=== PATIENT | female | born 1940 | race American Indian/Alaskan Native ===

== ENCOUNTER 2016-08-10 06:05 | Emergency (ER) | payer MEDICARE ==
[2016-08-10 06:05] VITALS: BMI 31.4
[2016-08-10] MEDS ORDERED: Sodium Chloride 0.9% 500 ML IV ONE ×2 (07:27→07:32)
[2016-08-10 07:46] LABS: BASO % 0.6 % (0.0-2.0); EOS # 0.2 K/uL (0.0-0.7); EOS % 2.1 % (0.0-4.0); HEMATOCRIT 37.4 % (34.0-47.0); LYMPH # 3.1 K/uL (1.0-4.3); LYMPH % 37.2 % (20.0-40.0); MEAN CORPUSCULAR HEMOGLOBIN 25.6 pg (27.0-31.0); MEAN PLATELET VOLUME 8.1 fL (7.2-11.7); MONO # 0.4 K/uL (0.0-0.8); MONO % 5.1 % (0.0-10.0); RED CELL DISTRIBUTION WIDTH 15.3 % (11.5-14.5); WHITE BLOOD COUNT 8.4 K/uL (4.8-10.8)
[2016-08-10 07:51] LABS: CHLORIDE 101 mmol/L (98-107); SODIUM 141 mmol/L (132-148)
[2016-08-10 07:52] LABS: POTASSIUM 4.2 mmol/L (3.6-5.2)
[2016-08-10 07:54] LABS: ALB/GLOB RATIO 1.2 (1.0-2.1); ALKALINE PHOSPHATASE 42 U/L (38-126); ALT/SGPT 18 U/L (9-52); AST/SGOT 22 U/L (14-36); BILIRUBIN,TOTAL 0.6 mg/dL (0.2-1.3); BLOOD UREA NITROGEN 17 mg/dL (7-17); CARBON DIOXIDE 25 mmol/L (22-30); GFR AFRICAN-AMERICAN > 60; GLUCOSE,RANDOM 142 mg/dL (65-105); TOTAL PROTEIN 7.2 g/dL (6.3-8.3)
[2016-08-10 07:55] LABS: CALCIUM 8.5 mg/dl (8.6-10.4)
--- NOTE | 2016-08-10 07:59 | C.PDOC ---
History Of Present Illness 76 y/o female presents to the ED complaining of vaginal bleeding starting last night. She reports that she is still bleeding this morning. Patient denies any prior history of vaginal bleeding after menopause. She reports history of bilateral breast cancer, s/p mastectomy 1 year prior. States that it was not metastatic to her knowledge. Patient denies any chest pain, shortness of breath , nausea, vomiting, diarrhea, or dysuria. Time Seen by Provider: 08/10/16 07:15 Chief Complaint (Nursing): Female Genitourinary History Per: Patient History/Exam Limitations: no limitations Onset/Duration Of Symptoms: Hrs, Gradual, Persistent Current Symptoms Are (Timing): Still Present Recent travel outside of the [place]: No Past Medical History Reviewed: Historical Data, Nursing Documentation, Vital Signs Vital Signs: Last Vital Signs Temp 98.5 F 08/10/16 06:12 Pulse 53 L 08/10/16 10:35 Resp 18 08/10/16 10:35 BP 136/63 08/10/16 10:35 Pulse Ox 96 08/10/16 10:35 - Medical History PMH: Arthritis (right shoulder), Osteoporosis Surgical History: No Surg Hx - [facility] Procedures RESECTION OF BILATERAL BREAST, OPEN APPROACH (07/30/15) Family History: States: No Known Family Hx - Social History Hx Tobacco Use: No Hx Alcohol Use: No Hx Substance Use: No - Immunization History Hx Tetanus Toxoid Vaccination: No Hx Influenza Vaccination: No Hx Pneumococcal Vaccination: No Review Of Systems Except As Marked, All Systems Reviewed And Found Negative. Cardiovascular: Negative for: Chest Pain Respiratory: Negative for: Shortness of Breath Gastrointestinal: Negative for: Nausea, Vomiting, Diarrhea Genitourinary: Positive for: Vaginal Bleeding. Negative for: Dysuria Physical Exam - Physical Exam Appears: Non-toxic, No Acute Distress, Other (comfortable) Skin: Normal Color, Warm, Dry Head: Atraumatic, Normacephalic Neck: Normal ROM, Supple Chest: Symmetrical Cardiovascular: Rhythm Regular Respiratory: Normal Breath Sounds, No Rales, No Rhonchi, No Wheezing Gastrointestinal/Abdominal: Soft, Tenderness (mild, suprapubic), No Guarding, No Rebound Back: Normal Inspection, No CVA Tenderness Extremity: Normal ROM, No Swelling Neurological/Psych: Oriented x3, Normal Speech, Normal Cognition ED Course And Treatment - Laboratory Results Result Diagrams: 08/10/16 07:30 08/10/16 07:30 O2 Sat by Pulse Oximetry: 98 (ra) Pulse Ox Interpretation: Normal - CT Scan/US TRANSVAGINAL US Other Rad Studies (CT/US): Read By Radiologist, Radiology Report Reviewed CT/US Interpretation: Accession No. : [id number]. Patient Name / ID : CARMITA ROBISON / [id number]. Exam Date : 08/10/2016 09:15:57 ( Approved ). Study Comment : Sex / Age : F / 76Y. Creator : Osmin Burt MD. Dictator : Osmin Burt MD. Pet Ambassador : Enzyme Chemist : Osmin Burt MD. Approver2 : Report Date : 08/10/2016 11:45:42. My Comment : . Pelvic ultrasound dated 08/10/2016. History: Pelvic pain and vaginal bleeding. Transabdominal/transvaginal sonographic evaluation is performed comparison made with scan of the abdomen pelvis dated 01/18/2013. Findings: The uterus is anteverted measuring 5.9 x 5.7 x 7.0 cm. Dense calcified posterior fibroid measuring approximate 1.7 cm greatest dimension. The endometrium is abnormally thickened measuring 3.16 cm. Rule out endometrial hyperplasia, endometrial polyps or endometrial carcinoma. Followup OB ultrasound and additional studies recommended. No free fluid seen in the cul de sac. Right ovary measures 3.0 x 1.5 x 2.9 cm and exhibits arterial flow. Left ovary measures 2.9 x 1.7 x 2.3 cm and also exhibits arterial flow. Impression: Abnormally thickened endometrium. Rule out endometrial pathology including but not limited to endometrial carcinoma. OB ultrasound recommended. Progress Note: Blood work, urine, and transvaginal ultrasound were ordered. Patient was treated with Toradol IM and IV fluids. - Physician Consult Information Physician Contacted: Laisha Kamara Outcome Of Conversation: Dr. Kamara saw patient in ED, ok with discharge home. Patient to have [place] [facility] [place] [facility] [place] ([place]uled). Disposition Counseled Patient/Family Regarding: Studies Performed, Diagnosis, Need For Followup, Rx Given - Disposition Referrals: Laisha Kamara MD [Staff Provider] - Fidel Hernandez [Staff Provider] - Disposition: HOME/ ROUTINE Disposition Time: 12:00 Condition: STABLE Additional Instructions: FOLLOW UP TOMORROW FOR YOUR SCHEDULED PROCEDURE USE PAIN MEDICATION NEEDED RETURN TO EMERGENCY ROOM IF SYMPTOMS WORSEN Prescriptions: Naproxen [Naprosyn Tab] 375 mg PO BID PRN #20 tab PRN Reason: pain Instructions: Dysfunctional Uterine Bleeding (ED) Print Language: SERBIAN - POA Present On Arrival: None - Clinical Impression Clinical Impression: Thickened endometrium, Post-menopausal bleeding - Scribe Statement The provider has reviewed the documentation as recorded by the Scribe (Makayla Lyon) Provider Attestation: All medical record entries made by the Scribe were at my direction and personally dictated by me. I have reviewed the chart and agree that the record accurately reflects my personal performance of the history, physical exam, medical decision making, and the department course for this patient. I have also personally directed, reviewed, and agree with the discharge instructions and disposition.
[2016-08-10 08:09] LABS: RBC URINE 52 /hpf (0-3); URINE BACTERIA RARE (<OCC); URINE BILIRUBIN NEGATIVE (NEGATIVE); URINE BLOOD 3+ (NEGATIVE); URINE COLOR Yellow (YELLOW); URINE GLUCOSE (UA) NORMAL (Normal); URINE KETONE NEGATIVE (NEGATIVE); URINE LEUKOCYTE ESTERASE 2+ Leu/uL (Negative); URINE PROTEIN NEGATIVE (NEGATIVE); URINE UROBILINOGEN NORMAL mg/dL (0.2-1.0); WBC URINE 29 /hpf (0-5)
[2016-08-10 10:36] VITALS: RESP 18
--- NOTE | 2016-08-10 11:47 | US ---
Pelvic ultrasound dated 08/10/2016. History: Pelvic pain and vaginal bleeding. Transabdominal/transvaginal sonographic evaluation is performed comparison made with scan of the abdomen pelvis dated 01/18/2013. Findings: The uterus is anteverted measuring 5.9 x 5.7 x 7.0 cm. Dense calcified posterior fibroid measuring approximate 1.7 cm greatest dimension. The endometrium is abnormally thickened measuring 3.16 cm. Rule out endometrial hyperplasia, endometrial polyps or endometrial carcinoma. Followup OB ultrasound and additional studies recommended. No free fluid seen in the cul de sac. Right ovary measures 3.0 x 1.5 x 2.9 cm and exhibits arterial flow. Left ovary measures 2.9 x 1.7 x 2.3 cm and also exhibits arterial flow Impression: Abnormally thickened endometrium. Rule out endometrial pathology including but not limited to endometrial carcinoma. OB ultrasound recommended.
[2016-08-10 11:58] VITALS: O2SAT 98
[2016-08-10 12:47] VITALS: BP 147/79; PULSE 67; TEMP 98.1
== END 2016-08-10 12:31 | disposition home or self-care (01) ==
LOC: C.ER 06:05
DX: N95.0 Postmenopausal bleeding (principal); R93.8 Abnormal findings on diagnostic imaging of other specified body structures
CPT/HCPCS: 76830; 76856; 80053; 81001; 85025; 85610; 85730; 86850; 86900; 87086; 96372; 99285; J1885; J7040

== ENCOUNTER 2017-10-12 16:29 | Observation (INO) | payer MEDICARE ==
[2017-10-12 16:29] VITALS: BMI 31.4
--- NOTE | 2017-10-12 16:48 | C.PDOC ---
History Of Present Illness The patient is a 77 year old female whose PMHx includes breast cancer (stable for two years). Patient states she woke up this morning feeling cold, weak, and slightly short of breath. 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 Patient was evaluated by her PMD, who has sent her to the ED for further evaluation. Shortly after ED arrival, patient became nauseous and had an episode of vomiting. She denies chest pain, cough, and abdominal pain at this time. PMD: Dr. Hernandez Time Seen by Provider: 10/12/17 16:39 Chief Complaint (Nursing): Shortness Of Breath History Per: Patient History/Exam Limitations: no limitations Onset/Duration Of Symptoms: Hrs Current Symptoms Are (Timing): Still Present Quality: denies: "Pain" Current Respiratory Medications: See Home Med List Associated Symptoms: denies: Chest Pain, Bloody Cough, Productive Cough Additional History Per: Patient Past Medical History Reviewed: Historical Data, Nursing Documentation, Vital Signs Vital Signs: Last Vital Signs Temp 101.8 F H 10/12/17 18:28 Pulse 87 10/12/17 16:42 Resp 18 10/12/17 16:42 BP 123/71 10/12/17 16:42 Pulse Ox 95 10/12/17 18:09 - Medical History PMH: Arthritis (right shoulder), Osteoporosis Surgical History: No Surg Hx - [facility] Procedures RESECTION OF BILATERAL BREAST, OPEN APPROACH (07/30/15) Family History: States: Unknown Family Hx - Social History Hx Tobacco Use: No Hx Alcohol Use: No Hx Substance Use: No - Immunization History Hx Tetanus Toxoid Vaccination: No Hx Influenza Vaccination: No Hx Pneumococcal Vaccination: No Review Of Systems Constitutional: Positive for: Weakness, Other ("feeling cold") Cardiovascular: Negative for: Chest Pain Respiratory: Positive for: Shortness of Breath Gastrointestinal: Positive for: Nausea, Vomiting. Negative for: Abdominal Pain Physical Exam - Physical Exam Appears: Non-toxic, No Acute Distress Skin: Normal Color, Warm, Dry, Other (slightly warm to touch ) Head: Atraumatic, Normacephalic Eye(s): bilateral: Normal Inspection Oral Mucosa: Moist Neck: Supple Chest: Symmetrical, No Deformity, No Tenderness Cardiovascular: Rhythm Regular, No Murmur Respiratory: Normal Breath Sounds, No Rales, No Rhonchi, No Wheezing Gastrointestinal/Abdominal: Soft, No Tenderness, No Guarding, No Rebound Extremity: Normal ROM, Capillary Refill (less than 2 seconds ) Neurological/Psych: Oriented x3, Normal Speech, Normal Cognition ED Course And Treatment - Laboratory Results Result Diagrams: 10/12/17 16:54 10/12/17 16:54 Lab Interpretation: No Acute Changes O2 Sat by Pulse Oximetry: 95 (on RA) Pulse Ox Interpretation: Normal - Radiology CXR: Viewed By Me, Read By Radiologist CXR Interpretation: Yes: No Acute Disease Progress Note: Bloodwork, CXR, and EKG ordered and reviewed. Reevaluation Time: 18:15 Reassessment Condition: Unchanged (Patient has fever 101.6 rectally.) - Physician Consult Information Time Consulting Physician Contacted: 18:07 Physician Contacted: Андрей Hernandez Outcome Of Conversation: Patient to be admitted to his service. Disposition - Disposition Disposition: HOSPITALIZED Disposition Time: 19:13 Condition: STABLE - POA Present On Arrival: None - Clinical Impression Clinical Impression: Dyspnea, Fever - Scribe Statement The provider has reviewed the documentation as recorded by the Scribe (Melissa Mari) Provider Attestation: All medical record entries made by the Scribe were at my direction and personally dictated by me. I have reviewed the chart and agree that the record accurately reflects my personal performance of the history, physical exam, medical decision making, and the department course for this patient. I have also personally directed, reviewed, and agree with the discharge instructions and disposition.
[2017-10-12 17:03] LABS: BASO % 0.3 % (0.0-2.0); EOS % 0.5 % (0.0-4.0); HEMOGLOBIN 13.1 g/dL (11.0-16.0); LYMPH # 0.9 K/uL (1.0-4.3); LYMPH % 8.9 % (20.0-40.0); MEAN CELL VOLUME 78.3 fL (81.0-99.0); MEAN CORPUSCULAR HEMOGLOBIN 26.8 pg (27.0-31.0); MEAN CORPUSCULAR HGB CONC 34.3 g/dL (33.0-37.0); MEAN PLATELET VOLUME 8.4 fL (7.2-11.7); MONO # 0.4 K/uL (0.0-0.8); NEUT # 8.7 K/uL (1.8-7.0); NEUT % 86.3 % (50.0-75.0); NRBC % 0.2 % (0.0-2.0); PLATELET COUNT 228 K/uL (130-400); RED CELL DISTRIBUTION WIDTH 16.6 % (11.5-14.5); WHITE BLOOD COUNT 10.1 K/uL (4.8-10.8)
[2017-10-12 17:17] LABS: ALB/GLOB RATIO 1.4 (1.0-2.1); ALT/SGPT 18 U/L (9-52); AST/SGOT 26 U/L (14-36); BLOOD UREA NITROGEN 18 mg/dL (7-17); CALCIUM 9.1 mg/dl (8.6-10.4); GFR AFRICAN-AMERICAN > 60; GFR NON-AFRICAN AMERICAN > 60
[2017-10-12 17:29] LABS: B-TYPE NATRIURETIC PEPTIDE 68.5 pg/mL (0-900)
[2017-10-12 17:46] LABS: LYMPHOCYTE 13 % (20-40); MONOCYTE 2 % (0-10); NEUTROPHIL 85 % (50-75); TOTAL CELLS COUNTED 100
[2017-10-12 17:47] LABS: ANISOCYTOSIS SLIGHT; PLATELET ESTIMATE NORMAL (NORMAL)
--- NOTE | 2017-10-12 18:03 | RAD ---
PROCEDURE: CHEST RADIOGRAPH, 1 VIEW HISTORY: SOB COMPARISON: 06/28/2016 FINDINGS: LUNGS: Clear. PLEURA: No pneumothorax or pleural fluid seen. CARDIOVASCULAR: Normal. OSSEOUS STRUCTURES: No significant abnormalities. VISUALIZED UPPER ABDOMEN: Normal. OTHER FINDINGS: None. IMPRESSION: No active disease.
[2017-10-12 18:55] LABS: SQUAMOUS EPITHIAL 2 /hpf (0-5); URINE BACTERIA RARE (<OCC); URINE BILIRUBIN NEGATIVE (NEGATIVE); URINE BLOOD NEGATIVE (NEGATIVE); URINE CLARITY Clear (Clear); URINE COLOR Yellow (YELLOW); URINE GLUCOSE (UA) NORMAL (Normal); URINE LEUKOCYTE ESTERASE NEG Leu/uL (Negative); URINE PROTEIN NEGATIVE (NEGATIVE); URINE UROBILINOGEN NORMAL mg/dL (0.2-1.0)
[2017-10-12] MEDS ORDERED: cefTRIAXone IV 1 gm in Dextros 50 ML IVPB ONE ×2 (20:04→20:19)
[2017-10-12] MEDS ORDERED: Azithromycin 500mg/250ML NS 500 MG/250 ML BAG IV ONE (20:15)
[2017-10-12] MEDS ORDERED: Iodixanol 320 MG/ML 100 ML BOTTLE IV ONE (20:42)
--- NOTE | 2017-10-12 21:57 | CT ---
EXAM: CT Angiography Chest With Intravenous Contrast CLINICAL HISTORY: 77 years old, female; Signs and symptoms; Dyspnea; Additional info: Dyspnea, elevated d dimer TECHNIQUE: Axial computed tomographic angiography images of the chest with intravenous contrast using pulmonary embolism protocol. All CT scans at this facility use one or more dose reduction techniques, viz.: automated exposure control; ma/kV adjustment per patient size (including targeted exams where dose is matched to indication; i.e. head); or iterative reconstruction technique. MIP reconstructed images were created and reviewed. Coronal and sagittal reformatted images were created and reviewed. CONTRAST: 100 mL of visipaque 320 administered intravenously. COMPARISON: CR - CHEST TWO VIEWS (PA/LAT) 2015-07-17 08:43 FINDINGS: Limitations: Motion artifact - mild. Pulmonary arteries: No definite pulmonary embolism. Aorta: Minimal atherosclerotic disease. No aneurysm. Lungs: Minimal atelectasis. No consolidation. Few pulmonary nodules, up to 0.5 cm. Pleural space: No significant effusion. No pneumothorax. Heart: No cardiomegaly. No significant pericardial effusion. Minimal coronary artery calcifications. Bones/joints: Mild degenerative changes of spine. No acute fracture. Soft tissues: Bilateral mastectomies. Mild focal skin thickening anterior chest wall. Lymph nodes: No pathologically enlarged lymph nodes. Liver: Few calcifications. 1.9 x 2.3 x 2.5 cm hypodense lesion within left lobe, indeterminate by CT criteria. IMPRESSION: 1. No definite CT evidence of pulmonary embolism. 2. Liver lesion, incompletely characterized. Recommend nonemergent MRI. 3. Pulmonary nodules. For low-risk patients, no follow-up is necessary. For high-risk patients (smoking history or other known risk factors) an optional CT at 12 months could be performed. 4. Incidental/non-acute findings are described above.
[2017-10-12 22:16] VITALS: RESP 20
[2017-10-12] MEDS ORDERED: Oxycodone/Acetaminophen 5/325 mg Tab PO PRN (23:19)
--- NOTE | 2017-10-13 07:49 | CP.PCM.PN ---
Subjective - Date & Time of Evaluation Date of Evaluation: 10/13/17 Time of Evaluation: 07:49 - Subjective Subjective: 77 year old female with past medical history of breast cancer s/p b/l masectomy and arthritis presents to the ED yesterday complaining of weakness, fever, chills and shortness of breath. Patient's symptoms started 1 days ago suddenly when she woke up in the morning. She went to work and was sent home to see her PMD Dr. Hernandez. Patient was recommended to come to the ED to be evaluated. While in the ED patient had an episode of vomiting. Patient saw her Heme/onc doctor earlier this year and was told to follow up again this summer. There was no change in treatment. This morning patient states her symptoms improved but still having some weakness. Currently she denies headache, shortness of breath, chest pain, nausea, vomiting, or diarrhea. PMD: Liliana Hernandez/onc: Maranda PMHx: Ductal carcinoma of breast, arthritis PSHx: b/l masectomy 2015 Allergy: NKDA Family Hx: non contributory Social Hx: Denies tobacco, alcohol or other drug use Meds: Vitamin D2, Norvasc, Tamoxifen, percocet Objective - Vital Signs/Intake and Output Vital Signs (last 24 hours): Temp Pulse Resp BP Pulse Ox 98.4 F 78 20 109/63 98 10/13/17 07:00 10/13/17 07:00 10/13/17 07:00 10/13/17 07:00 10/13/17 07:00 Intake and Output: 10/13/17 10/13/17 06:59 18:59 Intake Total 200 Balance 200 - Medications Medications: Current Medications Amlodipine Besylate (Norvasc) 5 mg PO DAILY LILIAM Ergocalciferol (Drisdol 50,000 Intl Units Cap) 1 cap PO QWK LILIAM Ceftriaxone Sodium 1 gm/ (Sodium Chloride) 100 mls @ 100 mls/hr IVPB DAILY LILIAM PRN Reason: Protocol Azithromycin 500 mg/ Sodium (Chloride) 250 mls @ 250 mls/hr IVPB DAILY LILIAM PRN Reason: Protocol Naproxen (Anaprox Ds) 550 mg PO DAILY LILIAM Oxycodone/Acetaminophen (Percocet 5/325 Mg Tab) 1 tab PO Q4H PRN PRN Reason: Pain, moderate (4-7) Stop: 10/15/17 23:20 Tamoxifen Citrate (Nolvadex) 20 mg PO DAILY LILIAM - Labs Labs: 10/12/17 16:54 10/12/17 16:54 - Constitutional Appears: Non-toxic, No Acute Distress - Head Exam Head Exam: ATRAUMATIC, NORMOCEPHALIC - Eye Exam Eye Exam: EOMI, Normal appearance - ENT Exam ENT Exam: Mucous Membranes Moist - Respiratory Exam Respiratory Exam: Clear to Ausculation Bilateral, NORMAL BREATHING PATTERN. absent: Rhonchi, Wheezes, Respiratory Distress - Cardiovascular Exam Cardiovascular Exam: REGULAR RHYTHM, +S1, +S2. absent: Murmur - GI/Abdominal Exam GI & Abdominal Exam: Soft, Normal Bowel Sounds. absent: Tenderness (lower abdominal discomfort with deep palpation) - Extremities Exam Extremities Exam: Normal Capillary Refill. absent: Joint Swelling - Neurological Exam Neurological Exam: Alert, Awake, Oriented x3 - Psychiatric Exam Psychiatric exam: Normal Affect, Normal Mood - Skin Skin Exam: Normal Color, Warm Assessment and Plan - Assessment and Plan (Free Text) Assessment: Fever -101.8 upon ED admission -No leukocytosis -Rapid flue negative -Follow up blood and urine cultures -ID consulted, Dr. Velez help appreciated -Rocephin 1gm IV (start 10/13) -Azithromycin 500mg IV (start 10/13) Hx of breast cancer s/p masectomy -Tamoxifen 20mg Elevated D-dimer -D dimer 862 -CT chest negative for PE -follow up venous doppler HTN -Amlodipine 5mg Vitamin D deficiency -Ergocalciferol 45850c weekly Prophylactic measures -Lovenox -SCD -PT Case discussed with attending physician Dr. Hernandez
[2017-10-13 08:33] LABS: HEMOGLOBIN 11.8 g/dL (11.0-16.0); MEAN CORPUSCULAR HEMOGLOBIN 26.8 pg (27.0-31.0); MEAN CORPUSCULAR HGB CONC 33.9 g/dL (33.0-37.0); MEAN PLATELET VOLUME 8.6 fL (7.2-11.7); RBC 4.38 Mil/uL (3.80-5.20); RED CELL DISTRIBUTION WIDTH 17.2 % (11.5-14.5); WHITE BLOOD COUNT 6.4 K/uL (4.8-10.8)
[2017-10-13 08:55] LABS: ALB/GLOB RATIO 1.3 (1.0-2.1); ALBUMIN 3.7 g/dL (3.5-5.0); ALT/SGPT 24 U/L (9-52); AST/SGOT 23 U/L (14-36); BLOOD UREA NITROGEN 16 mg/dL (7-17); CALCIUM 9.1 mg/dl (8.6-10.4); GFR AFRICAN-AMERICAN > 60; GFR NON-AFRICAN AMERICAN 54
[2017-10-13] MEDS ORDERED: Ergocalciferol 50,000 Intl Units Cap PO SCH (10:00)
[2017-10-13] MEDS: Azithromycin 500 MG in Sodium Chloride 0.9% 250 ML IVPB SCH (10:23)
[2017-10-13] MEDS: Naproxen 550 mg Tab PO SCH (10:25)
[2017-10-13] MEDS: Enoxaparin 40 mg Syringe SC SCH (10:25)
--- NOTE | 2017-10-13 13:33 | VASCLAB ---
PROCEDURE: Lower Extremity Venous Duplex Exam. HISTORY: Elevated D Dimer, r/o DVT PRIORS: None TECHNIQUE: Bilateral common femoral, femoral, popliteal and posterior tibial, peroneal and great saphenous veins were evaluated. Flow was assessed with color Doppler, compressibility, assessment of phasic flow and augmentation response. Report prepared by Cordell Boss, JUDITH, RVT FINDINGS: RIGHT: 1. Common Femoral Vein: 1.1. Compressibility - Fully compressible: Thrombus - None : Flow - Phasic: Augmentation -Normal: Reflux - None. 2. Femoral Vein: 2.1. Compressibility - Fully compressible: Thrombus - None : Flow - Phasic: Augmentation -Normal: Reflux - None. 3. Popliteal Vein: 3.1. Compressibility - Fully compressible: Thrombus - None : Flow - Phasic: Augmentation -Normal: Reflux - None. 4. Posterior Tibial Vein: 4.1. Compressibility - Fully compressible: Thrombus - None: Flow - Phasic: Augmentation -Normal: Reflux - None. 5. Peroneal Vein: 5.1. Compressibility - Fully compressible: Thrombus - None: Flow - Phasic: Augmentation -Normal: Reflux - None. 6. Great Saphenous Vein: 6.1. Compressibility - Fully compressible: Thrombus - None: Flow - Phasic: Augmentation - Normal: Reflux - None. LEFT: 1. Common Femoral Vein: 1.1. Compressibility - Fully compressible: Thrombus - None: Flow - Phasic: Augmentation -Normal: Reflux - None. 2. Femoral Vein: 2.1. Compressibility - Fully compressible: Thrombus - None: Flow - Phasic: Augmentation -Normal: Reflux - None. 3. Popliteal Vein: 3.1. Compressibility - Fully compressible: Thrombus - None : Flow - Phasic: Augmentation -Normal: Reflux - None. 4. Posterior Tibial Vein: 4.1. Compressibility - Fully compressible: Thrombus - None: Flow - Phasic: Augmentation -Normal: Reflux - None. 5. Peroneal Vein: 5.1. Compressibility - Fully compressible: Thrombus - None: Flow - Phasic: Augmentation -Normal: Reflux - None. 6. Great Saphenous Vein: 6.1. Compressibility - Fully compressible: Thrombus - None: Flow - Phasic: Augmentation - Normal: Reflux - None. OTHER FINDINGS: Right: None significant. Left: None significant. IMPRESSION: Right: No evidence of deep or superficial vein thrombosis of the right lower extremity. Normal valve function noted of the right side. Left: No evidence of deep or superficial vein thrombosis of the left lower extremity. Normal valve function noted of the left side.
--- NOTE | 2017-10-13 13:51 | CARD ---
APPROVED REPORT EKG Measurement Heart [id number] <Conclusion> Normal sinus rhythm Normal ECG
--- NOTE | 2017-10-13 19:15 | CP.PCM.CON ---
History of Present Illness - History of Present Illness History of Present Illness: 77 year old female with past medical history of breast cancer s/p b/l masectomy and arthritis presents to the ED yesterday complaining of weakness, fever, chills and shortness of breath. Patient's symptoms started 1 days ago suddenly when she woke up in the morning. She went to work and was sent home to see her PMD Dr. Hernandez. Patient was recommended to come to the ED to be evaluated. While in the ED patient had an episode of vomiting. Patient saw her Heme/onc doctor earlier this year and was told to follow up again this summer. There was no change in treatment. This morning patient states her symptoms improved but still having some weakness. Currently she denies headache, shortness of breath, chest pain, nausea, vomiting, or diarrhea. PMD: Liliana Hernandez/onc: Maranda PMHx: Ductal carcinoma of breast, arthritis PSHx: b/l masectomy 2015 Allergy: NKDA Family Hx: non contributory Social Hx: Denies tobacco, alcohol or other drug use Meds: Vitamin D2, Norvasc, Tamoxifen, percocet - Medical History PMH: Arthritis (right shoulder), Osteoporosis Surgical History: No Surg Hx - [facility] Procedures RESECTION OF BILATERAL BREAST, OPEN APPROACH (07/30/15) Family History: States: Unknown Family Hx - Social History Hx Tobacco Use: No Hx Alcohol Use: No Hx Substance Use: No - Immunization History Hx Tetanus Toxoid Vaccination: No Hx Influenza Vaccination: No Hx Pneumococcal Vaccination: No Review Of Systems Constitutional: Positive for: Weakness, Other ("feeling cold") Cardiovascular: Negative for: Chest Pain Respiratory: Positive for: Shortness of Breath Gastrointestinal: Positive for: Nausea, Vomiting. Negative for: Abdominal Pain Review of Systems - Review of Systems All systems: reviewed and no additional remarkable complaints except - Constitutional Constitutional: As Per HPI - EENT Eyes: absent: As Per HPI, Blind Spots, Blurred Vision, Change in Vision, Decreased Night Vision, Diplopia, Discharge, Dry Eye, Exophthalmos, Floaters, Irritation, Itchy Eyes, Loss of Peripheral Vision, Pain, Photophobia, Requires Corrective Lenses, Sees Flashes, Spots in Vision, Tunnel Vision, Other Visual Disturbances, Loss of Vision, Other Ears: absent: As Per HPI, Decreased Hearing, Ear Discharge, Ear Pain, Tinnitus, Abnormal Hearing, Disequilibrium, Dizziness, Other Nose/Mouth/Throat: absent: As Per HPI, Epistaxis, Nasal Congestion, Nasal Discharge, Nasal Obstruction, Nasal Trauma, Nose Pain, Post Nasal Drip, Sinus Pain, Sinus Pressure, Bleeding Gums, Change in Voice, Dental Pain, Dry Mouth, Dysphagia, Halitosis, Hoarsness, Lip Swelling, Mouth Lesions, Mouth Pain, Odynophagia, Sore Throat, Throat Swelling, Tongue Swelling, Facial Pain, Neck Pain, Neck Mass, Other - Breasts Breasts: absent: As Per HPI, Change in Shape, Mass, Pain, Nipple Discharge, Nipple Inversion, Skin Changes, Swelling, Other - Cardiovascular Cardiovascular: absent: As Per HPI, Acrocyanosis, Chest Pain, Chest Pain at Rest , Chest Pain with Activity, Claudication, Diaphoresis, Dyspnea, Dyspnea on Exertion, Edema, Irregular Heart Rhythm, Pain Radiating to Arm/Neck/Jaw, Leg Edema, Leg Ulcers, Lightheadedness, Orthopnea, Palpitations, Paroxysmal Nocturnal Dyspnea, Pedal Edema, Radiating Pain, Rapid Heart Rate, Slow Heart Rate, Syncope, Other - Respiratory Respiratory: absent: As Per HPI, Cough, Dyspnea, Hemoptysis, Dyspnea on Exertion , Wheezing, Snoring, Stridor, Pain on Inspiration, Chest Congestion, Excessive Mucous Production, Change in Mucous Color, Pain with Coughing, Other - Gastrointestinal Gastrointestinal: absent: As Per HPI, Abdominal Pain, Belching, Bloating, Change in Bowel Habits, Change in Stool Character, Coffee Ground Emesis, Constipation, Cramping, Diarrhea, Dyspepsia, Dysphagia, Early Satiety, Excessive Flatus, Fecal Incontinence, Heartburn, Hematemesis, Hematochezia, Loose Stools, Melena, Nausea, Odynophagia, Temesmus, Vomiting, Other - Genitourinary Genitourinary: absent: As Per HPI, Change in Urinary Stream, Difficulty Urinating, Dysuria, Flank Pain, Hematuria, Pyuria, Nocturia, Urinary Incontinence, Urinary Frequency, Urinary Hesitance, Urinary Urgency, Voiding Freq/Small Amts, Freq UTI, Hx Renal/Bladder Calculi, Hx /Renal Surgery, Bladder Distension, Other - Reproductive: Female Reproductive:Female: absent: As Per HPI, Amenorrhea, Amenorrhea/ Control, Currently Menstual, Cycle <21 Days, Cycle >35 Days, Cycle Variable, Menses 1-7 Days, Menses >/= 8 Days, Menses Variable, Cycle > 4 Weeks Between, No Menses for 6 Months, Heavy Menses, Light Menses, Normal Menses, Spotting Between Cycles , S/P Hysterectomy, Menopausal, Post Menopausal, Premenarche, Abnormal Vaginal Bleeding, Dysmenorrhea, Dyspareunia, Genital Lesions, Genital Pruritis, Pelvic Pain, Prolapse Symptoms, Sexual Dysfunction, Vaginal Discharge, Vaginal Dryness , Vaginal Odor, Vaginal Pruritis, Other - Menstruation Menstruation: absent: As Per HPI, Amenorrhea, Amenorrhea/ Control, Currently Menstual, Cycle <21 Days, Cycle >35 Days, Cycle Variable, Menses 1-7 Days, Menses >/= 8 Days, Menses Variable, Cycle > 4 Weeks Between, No Menses for 6 Months, Heavy Menses, Light Menses, Normal Menses, Spotting Between Cycles , S/P Hysterectomy, Menopausal, Post Menopausal, Premenarche, Abnormal Vaginal Bleeding, Dysmenorrhea, Other - Musculoskeletal Musculoskeletal: absent: As Per HPI, Abnormal Gait, Arthralgias, Atrophy, Back Pain, Deformity, Joint Swelling, Limited Range of Motion, Loss of Height, Muscle Cramps, Muscle Weakness, Myalgias, Neck Pain, Numbness, Radiating Pain into Limb, Stiffness, Tingling, Other - Integumentary Integumentary: absent: As Per HPI, Acne, Alopecia, Bleeding Lesions, Change in Hair, Change in Nails, Change in Pigmentation, Changing Lesions, Dry Skin, Erythema, Furuncle, Hirsutism, Lesions, New Lesions, Non-Healing Lesions, Photosensitivity, Pruritus, Rash, Skin Pain, Skin Ulcer, Sores, Striae, Swelling , Unusual Bruising, Wounds, Jaundice, Other - Neurological Neurological: absent: As Per HPI, Abnormal Gait, Abnormal Hearing, Abnormal Movements, Abnormal Speech, Behavioral Changes, Burning Sensations, Confusion, Convulsions, Disequilibrium, Dizziness, Numbness, Focal Weakness, Frequent Falls , Headaches, Lack of Coordination, Loss of Vision, Memory Loss, Paresthesias, Radicular Pain, Restless Legs, Sensory Deficit, Syncope, Tingling, Tremor, Vertigo, Weakness, Other Visual Disturbances, Other - Psychiatric Psychiatric: absent: As Per HPI, Abnormal Sleep Pattern, Anhedonia, Anxiety, Auditory Hallucinations, Behavioral Changes, Change in Appetite, Change in Libido, Confusion, Depression, Difficulty Concentrating, Hallucinations, Homicidal Ideation, Hopelessness, Irritability, Memory Loss, Mood Swings, Panic Attacks, Paranoia, Suicidal Ideation, Visual Hallucinations, Tactile Hallucinations, Other - Endocrine Endocrine: absent: As Per HPI, Change in Body Appearance, Change in Libido, Cold Intolorance, Deepening of Voice, Excessive Sweating, Fatigue, Flushing, Heat Intolorance, Increase in Ring/Shoe/Hat Size, Palpitations, Polydipsia, Polyphagia, Polyuria, Other - Hematologic/Lymphatic Hematologic: absent: As Per HPI, Easy Bleeding, Easy Bruising, Lymphadenopathy, Other Past Patient History - Infectious Disease Hx of Infectious Diseases: None - Past Medical History & Family History Past Medical History?: Yes - Past Social History Smoking Status: Never Smoked - CARDIAC Hx Cardiac Disorders: No Hx Hypertension: Yes - PULMONARY Hx Respiratory Disorders: No - NEUROLOGICAL Hx Neurological Disorder: No - HEENT Hx HEENT Problems: No - RENAL Hx Chronic Kidney Disease: No - ENDOCRINE/METABOLIC Hx Endocrine Disorders: No - HEMATOLOGICAL/ONCOLOGICAL Hx Blood Disorders: Yes Hx Cancer: Yes (right breast) - INTEGUMENTARY Hx Dermatological Problems: No - MUSCULOSKELETAL/RHEUMATOLOGICAL Hx Arthritis: Yes (right shoulder) Hx Osteoporosis: Yes - GENITOURINARY/GYNECOLOGICAL Hx Genitourinary Disorders: No - PSYCHIATRIC Hx Substance Use: No - SURGICAL HISTORY Hx Surgeries: Yes Other/Comment: hysteroscopy - ANESTHESIA Hx Anesthesia: Yes Hx Anesthesia Reactions: No Hx Malignant Hyperthermia: No Meds Allergies/Adverse Reactions: Allergies Allergy/AdvReac Type Severity Reaction Status Date / Time No Known Allergies Allergy Verified 10/12/17 16:49 - Medications Medications: Current Medications Amlodipine Besylate (Norvasc) 5 mg PO DAILY [facility] Last Admin: 10/13/17 10:25 Dose: 5 mg Enoxaparin Sodium (Lovenox) 40 mg SC DAILY [facility] Last Admin: 10/13/17 10:25 Dose: 40 mg Ergocalciferol (Drisdol 50,000 Intl Units Cap) 1 cap PO QWK [facility] Last Admin: 10/13/17 10:25 Dose: 1 cap Ceftriaxone Sodium 1 gm/ (Sodium Chloride) 100 mls @ 100 mls/hr IVPB DAILY [facility] PRN Reason: Protocol Last Admin: 10/13/17 10:24 Dose: 100 mls/hr Azithromycin 500 mg/ Sodium (Chloride) 250 mls @ 250 mls/hr IVPB DAILY [facility] PRN Reason: Protocol Last Admin: 10/13/17 10:23 Dose: 250 mls/hr Naproxen (Anaprox Ds) 550 mg PO DAILY [facility] Last Admin: 10/13/17 10:25 Dose: 550 mg Oxycodone/Acetaminophen (Percocet 5/325 Mg Tab) 1 tab PO Q4H PRN PRN Reason: Pain, moderate (4-7) Stop: 10/15/17 23:20 Tamoxifen Citrate (Nolvadex) 20 mg PO DAILY [facility] Last Admin: 10/13/17 11:44 Dose: 20 mg Physical Exam - Constitutional Appears: Non-toxic, Chronically Ill - Head Exam Head Exam: NORMOCEPHALIC - Eye Exam Eye Exam: PERRL. absent: Scleral icterus - ENT Exam ENT Exam: Mucous Membranes Dry - Neck Exam Neck exam: Negative for: Lymphadenopathy - Respiratory Exam Respiratory Exam: Decreased Breath Sounds - Cardiovascular Exam Cardiovascular Exam: REGULAR RHYTHM - GI/Abdominal Exam GI & Abdominal Exam: Diminished Bowel Sounds, Soft. absent: Tenderness - Rectal Exam Rectal Exam: Deferred - Exam Exam: NORMAL INSPECTION - Extremities Exam Extremities exam: Negative for: pedal edema - Back Exam Back exam: absent: CVA tenderness (L), CVA tenderness (R) - Neurological Exam Neurological exam: Alert, CN II-XII Intact, Oriented x3, Reflexes Normal - Psychiatric Exam Psychiatric exam: Normal Mood - Skin Skin Exam: Dry Results - Vital Signs Recent Vital Signs: Last Vital Signs Temp 98.1 F 10/13/17 16:05 Pulse 67 10/13/17 16:05 Resp 20 10/13/17 16:05 BP 99/60 L 10/13/17 16:05 Pulse Ox 96 10/13/17 16:05 - Labs Result Diagrams: 10/13/17 08:26 10/13/17 08:28 Labs: Laboratory Results - last 24 hr 10/12/17 10/12/17 10/13/17 19:22 19:22 08:26 WBC 6.4 RBC 4.38 Hgb 11.8 Hct 34.6 MCV 79.0 L MCH 26.8 L MCHC 33.9 RDW 17.2 H Plt Count 187 MPV 8.6 D-Dimer, Quantitative 862 H Sodium Potassium Chloride Carbon Dioxide Anion Gap BUN Creatinine Est GFR ( Amer) Est GFR (Non-Af Amer) Random Glucose Calcium Total Bilirubin AST ALT Alkaline Phosphatase Total Protein Albumin Globulin Albumin/Globulin Ratio Influenza Typ A,B (EIA) Negative for flu a/b 10/13/17 08:28 WBC RBC Hgb Hct MCV MCH MCHC RDW Plt Count MPV D-Dimer, Quantitative Sodium 139 Potassium 4.4 Chloride 102 Carbon Dioxide 28 Anion Gap 13 BUN 16 Creatinine 1.0 Est GFR ( Amer) > 60 Est GFR (Non-Af Amer) 54 Random Glucose 109 H Calcium 9.1 Total Bilirubin 0.7 AST 23 ALT 24 Alkaline Phosphatase 71 Total Protein 6.5 Albumin 3.7 Globulin 2.8 Albumin/Globulin Ratio 1.3 Influenza Typ A,B (EIA) Assessment & Plan (1) Dyspnea Status: Acute (2) Fever Status: Acute - Assessment and Plan (Free Text) Assessment: r/o atypical pneumonia pulmonary nodules on CT r/o malignancy vs evolving infiltrates await cultures cont IV antibiotics Consider CT abd/ Pelvis
--- NOTE | 2017-10-14 05:44 | HP ---
HISTORY OF PRESENT ILLNESS: A 77-year-old female admitted to the hospital with chief complaint of fevers, shortness of breath, chest pain. The patient came to the ER, advised admission. PHYSICAL EXAMINATION: GENERAL: The patient is awake, alert and oriented. VITAL SIGNS: Temperature 98 and pulse 90. HEENT: Within normal limits. NECK: Supple. CHEST: Symmetrical. HEART: Regular. ABDOMEN: Soft. EXTREMITIES: No edema. ASSESSMENT AND PLAN: The patient suffers from sepsis. The patient admitted, blood culture, urine culture, IV antibiotic. Андрей Hernandez MD
[2017-10-14 07:42] VITALS: TEMP 97.9
[2017-10-14 08:56] LABS: BASO % 0.6 % (0.0-2.0); EOS # 0.1 K/uL (0.0-0.7); EOS % 2.5 % (0.0-4.0); HEMOGLOBIN 11.7 g/dL (11.0-16.0); LYMPH % 45.2 % (20.0-40.0); MEAN CORPUSCULAR HEMOGLOBIN 26.8 pg (27.0-31.0); MEAN CORPUSCULAR HGB CONC 33.9 g/dL (33.0-37.0); MEAN PLATELET VOLUME 8.7 fL (7.2-11.7); MONO # 0.5 K/uL (0.0-0.8); NEUT # 1.8 K/uL (1.8-7.0); NEUT % 40.7 % (50.0-75.0); NRBC % 0.2 % (0.0-2.0); RBC 4.37 Mil/uL (3.80-5.20); RED CELL DISTRIBUTION WIDTH 16.9 % (11.5-14.5); WHITE BLOOD COUNT 4.5 K/uL (4.8-10.8)
--- NOTE | 2017-10-14 08:58 | CP.PCM.PN ---
Subjective - Date & Time of Evaluation Date of Evaluation: 10/14/17 Time of Evaluation: 08:58 - Subjective Subjective: Progress Note for Dr. Hernandez Patient seen and examined at bedside. No acute events reported overnight. Patient is resting in bed comfortably at the time of examination. Patient denies fever, chills, headache, shortness of breath, chest pain, nausea, vomiting, or diarrhea. Objective - Vital Signs/Intake and Output Vital Signs (last 24 hours): Temp Pulse Resp BP Pulse Ox 97.9 F 60 20 105/60 98 10/14/17 07:41 10/14/17 07:41 10/14/17 07:41 10/14/17 07:41 10/14/17 07:41 Intake and Output: 10/14/17 10/14/17 06:59 18:59 Intake Total 120 Balance 120 - Medications Medications: Current Medications Amlodipine Besylate (Norvasc) 5 mg PO DAILY [facility] Last Admin: 10/13/17 10:25 Dose: 5 mg Enoxaparin Sodium (Lovenox) 40 mg SC DAILY [facility] Last Admin: 10/13/17 10:25 Dose: 40 mg Ergocalciferol (Drisdol 50,000 Intl Units Cap) 1 cap PO QWK [facility] Last Admin: 10/13/17 10:25 Dose: 1 cap Ceftriaxone Sodium 1 gm/ (Sodium Chloride) 100 mls @ 100 mls/hr IVPB DAILY [facility] PRN Reason: Protocol Last Admin: 10/13/17 10:24 Dose: 100 mls/hr Azithromycin 500 mg/ Sodium (Chloride) 250 mls @ 250 mls/hr IVPB DAILY [facility] PRN Reason: Protocol Last Admin: 10/13/17 10:23 Dose: 250 mls/hr Naproxen (Anaprox Ds) 550 mg PO DAILY [facility] Last Admin: 10/13/17 10:25 Dose: 550 mg Oxycodone/Acetaminophen (Percocet 5/325 Mg Tab) 1 tab PO Q4H PRN PRN Reason: Pain, moderate (4-7) Stop: 10/15/17 23:20 Tamoxifen Citrate (Nolvadex) 20 mg PO DAILY [facility] Last Admin: 10/13/17 11:44 Dose: 20 mg - Labs Labs: 10/13/17 08:26 10/13/17 08:28 - Additional Findings Additional findings: - Constitutional Appears: Non-toxic, No Acute Distress - Head Exam Head Exam: ATRAUMATIC, NORMOCEPHALIC - Eye Exam Eye Exam: EOMI, Normal appearance - ENT Exam ENT Exam: Mucous Membranes Moist - Respiratory Exam Respiratory Exam: Clear to Ausculation Bilateral, NORMAL BREATHING PATTERN. absent: Rhonchi, Wheezes, Respiratory Distress - Cardiovascular Exam Cardiovascular Exam: REGULAR RHYTHM, +S1, +S2. absent: Murmur - GI/Abdominal Exam GI & Abdominal Exam: Soft, Normal Bowel Sounds. absent: Tenderness (lower abdominal discomfort with deep palpation) - Extremities Exam Extremities Exam: Normal Capillary Refill. absent: Joint Swelling - Neurological Exam Neurological Exam: Alert, Awake, Oriented x3 - Psychiatric Exam Psychiatric exam: Normal Affect, Normal Mood - Skin Skin Exam: Normal Color, Warm Assessment and Plan - Assessment and Plan (Free Text) Assessment: Fever, resolved -101.8 upon ED admission -No leukocytosis -Rapid flue negative -Follow up blood and urine cultures -ID consulted, Dr. Velez help appreciated -Rocephin 1gm IV (start 10/13) -Azithromycin 500mg IV (start 10/13) -Procal negative -Augmentin PO for 7 days per ID Hx of breast cancer s/p masectomy -Tamoxifen 20mg Elevated D-dimer -D dimer 862 -CT chest negative for PE -follow up venous doppler HTN -Amlodipine 5mg Vitamin D deficiency -Ergocalciferol [id number] weekly Prophylactic measures -Lovenox -SCD -PT Patient is medically stable to be discharged per Dr. Hernandez Case discussed with attending physician Dr. Hernandez
[2017-10-14 09:03] LABS: ALB/GLOB RATIO 1.2 (1.0-2.1); ALBUMIN 3.6 g/dL (3.5-5.0); ALT/SGPT 23 U/L (9-52); AST/SGOT 23 U/L (14-36); BLOOD UREA NITROGEN 15 mg/dL (7-17); CALCIUM 8.6 mg/dl (8.6-10.4); GFR AFRICAN-AMERICAN > 60; GFR NON-AFRICAN AMERICAN > 60
[2017-10-14] MEDS: Enoxaparin 40 mg Syringe SC SCH (10:41)
[2017-10-14] MEDS: Naproxen 550 mg Tab PO SCH (10:43)
[2017-10-14] MEDS: Azithromycin 500 MG in Sodium Chloride 0.9% 250 ML IVPB SCH (10:57)
[2017-10-14 11:46] VITALS: BP 130/70; PULSE 52; O2SAT 100
== END 2017-10-14 16:00 | disposition home or self-care (01) ==
LOC: C.ER 16:29 → C.5S 19:10 → C.9E 19:10 → C.5S 22:11
PROVIDERS: ADMIT Internal Medicine Pulmonary Disease; ATTEND Internal Medicine Pulmonary Disease
DX: R50.9 Fever, unspecified (principal); E55.9 Vitamin D deficiency, unspecified; I10 Essential (primary) hypertension; M81.0 Age-related osteoporosis without current pathological fracture; Z85.3 Personal history of malignant neoplasm of breast; R79.1 Abnormal coagulation profile; Z90.13 Acquired absence of bilateral breasts and nipples
CPT/HCPCS: 36415; 71045; 71275; 80053; 81001; 83880; 84145; 84484; 85025; 85027; 85378; 87040; 87086; 87804; 93005; 93970; 96360; 97116; 97162; 99285; G0378; G8978; G8979; G8980; J0456; J0696; J1650; J7050; Q9967

== ENCOUNTER 2018-06-16 11:08 | Outpatient (CLI) | payer MEDICARE | END 2018-06-16 11:09 | disposition home or self-care (01) | LOC: C.MRIC 11:08 ==

== ENCOUNTER 2018-08-14 10:16 | Outpatient (CLI) | payer MEDICARE | END 2018-08-14 10:17 | disposition home or self-care (01) | LOC: C.LAB 10:16 | DX: R10.33 Periumbilical pain (principal) ==

== ENCOUNTER 2018-08-22 10:27 | Outpatient (CLI) | payer MEDICARE | END 2018-08-22 10:28 | disposition home or self-care (01) | LOC: C.CTH 10:27 | DX: Z12.11 Encounter for screening for malignant neoplasm of colon (principal) ==